=== PATIENT | male | born 1960 | race Caucasian/White ===

== ENCOUNTER 2023-01-26 09:09 | Day surgery (SDC) | payer OTHER ==
[~2023-01-26] VITALS: Ht 180.3 cm; Wt 107.1 kg
[2023-01-26 10:10] VITALS: BP 126/93; PULSE 88; TEMP 98.9
[2023-01-26 11:05] VITALS: BP 112/68; PULSE 73; TEMP 97.5
[2023-01-26 11:20] VITALS: BP 116/67; PULSE 75
[2023-01-26 11:35] VITALS: BP 118/75; PULSE 68
--- NOTE | 2023-01-26 13:10 | NUR ---
[id number]: PT TO RECOVERY BAY 3 FROM [facility] S/P COLONOSCOPY A&O, PLACED ON MONITOR, VSS ON RA RECEIVED REPORT AND ASSUMED CARE OF PT FROM YANELIS COLVIN TO BEDSIDE PROVIDED FOOD/FLUIDS, TOLERATING WELL DR FINNEGAN TO SPEAK PT/FAMILY PT HAS REMAINED A&O, NAD, VSS ON RA, TOLERATING PO, IS WITHOUT SIGNIFICANT COMPLAINT, WITH STEADY GAIT THRU OUT STAY IV D/C'D. D/C INSTRUCTIONS, ANY FOLLOW UP REVIEWED AND HANDED TO PT. ALL QUESTIONS AND CONCERNS ADDRESSED TO PT SATISFACTION. TAKEN TO EXIT VIA W/C WITH ALL BELONGINGS AND PAPERWORK IN HAND, ASSISTED INTO PASSENGER SEAT OF POV. FAMILY TO DRIVE HOME.
== END 2023-01-26 11:55 | disposition home or self-care (01) ==
LOC: SDCO 09:09
DX: Z12.11 Encounter for screening for malignant neoplasm of colon (principal); D12.8 Benign neoplasm of rectum; K64.0 First degree hemorrhoids; G47.33 Obstructive sleep apnea (adult) (pediatric); E66.9 Obesity, unspecified; Z28.310 Unvaccinated for COVID-19; Z87.891 Personal history of nicotine dependence
CPT/HCPCS: J2704; J7120